=== PATIENT | male | born 1945 | race Caucasian/White ===

== ENCOUNTER → 2018-12-13 | Outpatient (CLI) | payer MEDICARE ==
[~2018-12-13] MED LIST: CELE200C PO; DULO20CA45 PO; LOSA100T14 PO
[2018-12-13 11:04] LABS: BASOPHILS # (AUTO) 0.03 x10^3/uL (0-0.1); BASOPHILS % (AUTO) 1 % (0-1); EOSINOPHILS # (AUTO) 0.44 x10^3/uL (0-0.4); EOSINOPHILS % (AUTO) 6 % (1-7); LYMPHOCYTES # (AUTO) 1.61 x10^3/uL (1-3.4); LYMPHOCYTES % (AUTO) 22 % (22-44); MD NO; MEAN CORPUSCULAR HEMOGLOBIN 30.9 pg (27.5-34.5); MEAN CORPUSCULAR HGB CONC 34.2 g/dL (33.2-36.2); MEAN CORPUSCULAR VOLUME 90.4 fL (81-97); MEAN PLATELET VOLUME 9.2 fL (7.4-10.4); MONOCYTES % (AUTO) 7 % (2-9); NEUTROPHILS # (AUTO) 4.64 x10^3/uL (1.8-6.8); NEUTROPHILS % (AUTO) 64 % (42-75); PLATELET COUNT 198 x10^3/uL (130-400); RED BLOOD COUNT 4.97 x10^6/uL (4.38-5.82); RED CELL DISTRIBUTION WIDTH 12.5 % (9.4-14.8)
[2018-12-13 11:06] LABS: MICROSCOPIC NOT IND
[2018-12-13 11:14] LABS: CULTURE INDICATED? NO
[2018-12-13 11:14] LABS: ALANINE AMINOTRANSFERASE 48 U/L (12-78); ALBUMIN 3.9 g/dL (3.4-5.0); ANION GAP 7 mmol/L (5-15); CHLORIDE 109 mmol/L (98-107); CREATININE 1.24 mg/dL (0.7-1.3)
[2018-12-13 11:17] LABS: ALKALINE PHOSPHATASE 113 U/L (45-117); BILIRUBIN,TOTAL 0.5 mg/dL (0.2-1.0); TOTAL PROTEIN 7.1 g/dL (6.4-8.2)
== END | disposition home or self-care (01) ==
LOC: STAR 09:52
PROVIDERS: ATTEND Orthopaedic Surgery
DX: Z01.818 Encounter for other preprocedural examination (principal); M17.11 Unilateral primary osteoarthritis, right knee; M25.561 Pain in right knee
CPT/HCPCS: 36415; 80053; 81003; 85025; 87081; 87147; 93005

== ENCOUNTER → 2019-04-02 | Outpatient (CLI) | payer MEDICARE ==
[~2019-04-02] MED LIST changes: +LOSA50TA14 PO; +OXYC5TAB2 PO; +OXYC5TAB3 PO
[2019-04-02 15:10] LABS: BASOPHILS # (AUTO) 0.04 x10^3/uL (0-0.1); BASOPHILS % (AUTO) 1 % (0-1); EOSINOPHILS # (AUTO) 0.23 x10^3/uL (0-0.4); EOSINOPHILS % (AUTO) 3 % (1-7); LYMPHOCYTES # (AUTO) 1.73 x10^3/uL (1-3.4); LYMPHOCYTES % (AUTO) 24 % (22-44); MD NO; MEAN CORPUSCULAR HEMOGLOBIN 29.7 pg (27.5-34.5); MEAN CORPUSCULAR HGB CONC 32.6 g/dL (33.2-36.2); MEAN CORPUSCULAR VOLUME 91.2 fL (81-97); MEAN PLATELET VOLUME 8.4 fL (7.4-10.4); MONOCYTES # (AUTO) 0.51 x10^3/uL (0.2-0.8); MONOCYTES % (AUTO) 7 % (2-9); NEUTROPHILS # (AUTO) 4.78 x10^3/uL (1.8-6.8); NEUTROPHILS % (AUTO) 66 % (42-75); PLATELET COUNT 206 x10^3/uL (130-400); RED BLOOD COUNT 4.98 x10^6/uL (4.38-5.82); RED CELL DISTRIBUTION WIDTH 13.3 % (9.4-14.8)
[2019-04-02 15:21] LABS: ALANINE AMINOTRANSFERASE 40 U/L (12-78); ALBUMIN 4.1 g/dL (3.4-5.0); ANION GAP 7 mmol/L (5-15); CALCIUM 8.9 mg/dL (8.5-10.1); CHLORIDE 110 mmol/L (98-107); CREATININE 1.25 mg/dL (0.7-1.3)
[2019-04-02 15:23] LABS: ALKALINE PHOSPHATASE 102 U/L (45-117); BILIRUBIN,TOTAL 0.4 mg/dL (0.2-1.0)
== END | disposition home or self-care (01) ==
LOC: STAR 14:03
PROVIDERS: ATTEND Orthopaedic Surgery
DX: Z01.818 Encounter for other preprocedural examination (principal); M16.12 Unilateral primary osteoarthritis, left hip
CPT/HCPCS: 36415; 80053; 85025; 87081; 93005

== ENCOUNTER 2019-04-07 10:00 | Inpatient (IN) | payer MEDICARE ==
[~2019-04-07] VITALS: Ht 188 cm; Wt 134.8 kg
[~2019-04-07 10:00] MED LIST changes: +EPINEPHRINE 1 MG/ML, 1ML ONE; +KETOROLAC 60 MG/2 ML ONE; -OXYC5TAB3 PO; +ROPIvacaine/PF 0.2%, 20 ML ONE; +SODIUM CHLORIDE 0.9% 50 ML ONE; +TRANEXAMIC ACID 100 MG/ML, 10ML ONE; +VANCOMYCIN 1,000 MG ONE
[2019-04-07] MEDS ORDERED: LACTATED RINGERS 1,000 ML IV SCH (10:35)
[2019-04-07] MEDS ORDERED: ACETAMINOPHEN 500 MG TABLET PO ONE (11:00)
[2019-04-07] MEDS ORDERED: GABAPENTIN 300 MG CAPSULE PO ONE (11:00)
[2019-04-07 11:07] VITALS: BP 134/79
[2019-04-07] MEDS ORDERED: FENTANYL PF 250 MCG/5ML ONE ×2 (12:34→14:07)
[2019-04-07] MEDS ORDERED: MIDAZOLAM 1 MG/ML, 2ML ONE (12:34)
[2019-04-07] MEDS ORDERED: DIAZEPAM 5 MG/ML, 2ML IVPush PRN (13:00)
[2019-04-07] MEDS ORDERED: FENTANYL PF 100 MCG/2ML IV PRN (13:00)
[2019-04-07] MEDS ORDERED: LABETALOL 5MG/ML, 20ML IV PRN (13:00)
[2019-04-07] MEDS ORDERED: ALBUTEROL SULFATE 2.5 MG/3 ML NPPB PRN (13:00)
[2019-04-07] MEDS ORDERED: HYDROmorphone 2 MG/ML, 1ML IVPush PRN (13:00)
[2019-04-07] MEDS ORDERED: OXYcodone 5 MG/5 ML ORAL.SOL UDC PO PRN (13:00)
[2019-04-07] MEDS ORDERED: PROMETHAZINE 25 MG/ML, 1ML IV PRN (13:00)
[2019-04-07] MEDS ORDERED: hydrALAzine 20 MG/ML, 1ML IV PRN (13:00)
[2019-04-07] MEDS ORDERED: MEPERIDINE/PF 25MG/0.5ML IVPush PRN (13:00)
[2019-04-07] MEDS ORDERED: ROCURONIUM 10MG/ML,5ML ONE (14:41)
[2019-04-07] MEDS ORDERED: PROPOFOL 10 MG/ML, 20ML ONE (14:41)
[2019-04-07] MEDS ORDERED: CEFAZOLIN 1,000 MG ONE (14:41)
[2019-04-07] MEDS ORDERED: GLYCOPYRROLATE 0.2MG/1ML, 5ML ONE (14:41)
[2019-04-07] MEDS ORDERED: DEXAMETHASONE 4 MG/ML, 1ML ONE (14:41)
[2019-04-07] MEDS ORDERED: SUCCINYLCHOLINE 20 MG/ML, 10ML ONE (14:41)
[2019-04-07] MEDS ORDERED: NEOSTIGMINE 1 MG/ML, 10ML ONE (14:41)
[2019-04-07] MEDS ORDERED: ONDANSETRON 2MG/ML, 2ML ONE (14:41)
[2019-04-07] MEDS ORDERED: HYDROmorphone 2 MG/ML, 1ML ONE (15:25)
[2019-04-07] MEDS ORDERED: OXYcodone 5 MG/5 ML ORAL.SOL UDC ONE (15:25)
[2019-04-07] MEDS ORDERED: POLYETHYLENE GLYCOL 17 GM PACKET PO PRN (15:30)
[2019-04-07] MEDS ORDERED: SENNA/DOCUSATE TABLET PO PRN (15:30)
[2019-04-07] MEDS ORDERED: BISACODYL 10 MG SUPP PR PRN (15:30)
[2019-04-07] MEDS ORDERED: DIPHENHYDRAMINE 50 MG CAPSULE PO PRN (15:30)
[2019-04-07] MEDS ORDERED: ONDANSETRON 2MG/ML, 2ML IV PRN (15:30)
[2019-04-07] MEDS: KETOROLAC 30 MG/1 ML IV SCH ×2 (15:30→23:53)
[2019-04-07] MEDS ORDERED: ONDANSETRON 4 MG TABLET PO PRN (15:30)
[2019-04-07] MEDS ORDERED: PROMETHAZINE 12.5 MG SUPP PR PRN (15:30)
[2019-04-07] MEDS ORDERED: DIAZEPAM 5 MG TABLET PO PRN (15:30)
[2019-04-07] MEDS ORDERED: ACETAMINOPHEN 325 MG TABLET PO PRN (15:30)
[2019-04-07] MEDS ORDERED: ALUMINUM/MAG/SIMETHICONE 30 ML UDC PO PRN (15:30)
[2019-04-07] MEDS ORDERED: PSYLLIUM PACKET PO PRN (15:30)
[2019-04-07] MEDS ORDERED: SCOPOLAMINE PATCH, 1.5MG PATCH.TD72 TD SCH (15:30)
[2019-04-07] MEDS ORDERED: ZOLPIDEM 5MG TABLET PO PRN (15:30)
[2019-04-07] MEDS ORDERED: PROMETHAZINE 25 MG/ML, 1ML IM PRN (15:30)
[2019-04-07] MEDS ORDERED: MAGNESIUM HYDROXIDE 8%, 30ML UDC PO PRN (15:30)
[2019-04-07] MEDS: ACETAMINOPHEN 325 MG TABLET PO SCH ×2 (15:30→21:41)
[2019-04-07] MEDS: HYDROmorphone 1 MG/ML, 1ML INJ IVPush PRN ×4 (15:33→16:11)
[2019-04-07] MEDS ORDERED: TRANEXAMIC ACID 1,000 MG in SODIUM CHLORIDE 0.9% 100 ML IVPB ONE (15:45)
[2019-04-07] MEDS: CALCIUM/VITAMIN D3 250-125 TABLET PO SCH (17:00)
[2019-04-07] MEDS: OXYcodone IR 5MG TABLET PO PRN ×2 (17:16→21:52)
[2019-04-07] MEDS: FERROUS SULFATE 325 MG TABLET PO SCH (17:19)
[2019-04-07] MEDS ORDERED: ASPIRIN 81 MG TABLET EC PO SCH ×2 (18:00→20:00)
[2019-04-07] MEDS: D5%-0.45% NACL 1,000 ML IV SCH ×2 (21:00→23:32)
[2019-04-07 21:05] VITALS: BP 147/83
[2019-04-07] MEDS ORDERED: ACETAMINOPHEN 500 MG TABLET ONE (21:34)
[2019-04-07] MEDS: DOCUSATE 100 MG CAPSULE PO SCH (21:41)
[2019-04-07] MEDS: CEFAZOLIN PMX 2GM/50ML 50 ML IVPB SCH (21:41)
[2019-04-08 00:55] VITALS: BP 117/72
[2019-04-08] MEDS: OXYcodone IR 5MG TABLET PO PRN ×2 (02:05→08:43)
[2019-04-08] MEDS: ACETAMINOPHEN 325 MG TABLET PO SCH ×2 (03:30→08:37)
[2019-04-08 04:08] VITALS: BP 130/73
[2019-04-08] MEDS: CEFAZOLIN PMX 2GM/50ML 50 ML IVPB SCH (05:16)
[2019-04-08] MEDS ORDERED: DEXAMETHASONE 4 MG/ML, 1ML IVPush ONE (06:00)
[2019-04-08 07:10] VITALS: BP 125/66
[2019-04-08] MEDS: KETOROLAC 30 MG/1 ML IV SCH (08:36)
[2019-04-08] MEDS: DOCUSATE 100 MG CAPSULE PO SCH (08:38)
[2019-04-08] MEDS: CALCIUM/VITAMIN D3 250-125 TABLET PO SCH (08:38)
[2019-04-08] MEDS: FERROUS SULFATE 325 MG TABLET PO SCH (08:38)
[2019-04-08] MEDS ORDERED: LOSARTAN 50MG TABLET PO SCH (09:00)
[2019-04-08] MEDS ORDERED: MULTIVITAMINS/MINERALS TABLET PO SCH (09:00)
[2019-04-08] MEDS ORDERED: ASCORBIC ACID 500 MG TABLET PO SCH (09:00)
[2019-04-08] MEDS ORDERED: OXYC5TAB3 PO (09:54)
== END 2019-04-08 10:25 | disposition home or self-care (01) | DRG 470 ==
LOC: ORIP 10:00 → 4NOR 16:35 → DCLOUNGE 04-08 10:14
PROVIDERS: ADMIT Orthopaedic Surgery; ATTEND Orthopaedic Surgery
PROC: 0SRB06A Replacement of Left Hip Joint with Oxidized Zirconium on Polyethylene Synthetic Substitute, Uncemented, Open Approach (ICD-10-PCS; principal; 2019-04-07 13:15)
PROC: 5A09357 Assistance with Respiratory Ventilation, Less than 24 Consecutive Hours, Continuous Positive Airway Pressure (ICD-10-PCS; 2019-04-08)
DX: M16.12 Unilateral primary osteoarthritis, left hip (principal); I10 Essential (primary) hypertension; G47.33 Obstructive sleep apnea (adult) (pediatric); E66.01 Morbid (severe) obesity due to excess calories; Z68.38 Body mass index [BMI] 38.0-38.9, adult
CPT/HCPCS: 36415; 72170; 85014; 85018; 86850; 86900; C1713; G0378; J0171; J0690; J1100; J1170; J1885; J2250; J2405; J2704; J2710; J2795; J3010; J3370; C1776; J0330; J7120

== ENCOUNTER → 2019-11-10 | Outpatient (CLI) | payer MEDICARE ==
[~2019-11-10] MED LIST changes: -EPINEPHRINE 1 MG/ML, 1ML ONE; -KETOROLAC 60 MG/2 ML ONE; +OXYC5TAB3 PO; -ROPIvacaine/PF 0.2%, 20 ML ONE; -SODIUM CHLORIDE 0.9% 50 ML ONE; -TRANEXAMIC ACID 100 MG/ML, 10ML ONE; -VANCOMYCIN 1,000 MG ONE
[2019-11-10 11:18] LABS: ALANINE AMINOTRANSFERASE 74 U/L (12-78); ANION GAP 7 mmol/L (5-15); CALCIUM 8.8 mg/dL (8.5-10.1); CHLORIDE 108 mmol/L (98-107); CHOLESTEROL, TOTAL 196 mg/dL (140-239); CREATININE 1.33 mg/dL (0.7-1.3); TRIGLYCERIDES 224 mg/dL (50-200); VLDL CHOLESTEROL 45 mg/dL (0-25)
[2019-11-10 11:20] LABS: ALKALINE PHOSPHATASE 103 U/L (45-117); BILIRUBIN,TOTAL 0.5 mg/dL (0.2-1.0); CHOL/HDL RATIO 6.3; HDL CHOL % 16 % (26-37); HDL CHOLESTEROL (DIRECT) 31 mg/dL (40-60); LDL CHOLESTEROL,CALCULATED 120 mg/dL (54-169); LDL/HDL RATIO 3.9 (0.5-3.0); TOTAL PROTEIN 7.3 g/dL (6.4-8.2)
== END | disposition home or self-care (01) ==
LOC: LAB 10:49
PROVIDERS: ATTEND Family Medicine
DX: E78.2 Mixed hyperlipidemia (principal); E66.9 Obesity, unspecified
CPT/HCPCS: 36415; 80053; 80061; 83036

== ENCOUNTER 2019-11-11 15:12 | Outpatient (CLI) | payer MEDICARE | END 2019-11-11 23:59 | disposition home or self-care (01) | LOC: CVU 15:12 → RAD 23:59 | PROVIDERS: ATTEND Family Medicine | DX: I71.2 Thoracic aortic aneurysm, without rupture (principal); E78.2 Mixed hyperlipidemia; I10 Essential (primary) hypertension; R05 Cough; Z91.048 Other nonmedicinal substance allergy status | CPT/HCPCS: 71046; 93306 ==